=== PATIENT | female | born 1950 | race Caucasian/White ===

== ENCOUNTER 2022-01-19 19:25 | Emergency (ER) | payer MEDICARE ==
[2022-01-19] MEDS ORDERED: Bacitracin Oint 1 GM U/D Packet TOP ONE (19:31)
[2022-01-19] MEDS ORDERED: Lidocaine 1% 5 ML VIAL INJECT ONE (19:31)
== END 2022-01-19 20:57 | disposition home or self-care (01) ==
LOC: JP.ED 19:25
DX: S61.216A Laceration without foreign body of right little finger without damage to nail, initial encounter (principal); Z79.899 Other long term (current) drug therapy; W26.8XXA Contact with other sharp object(s), not elsewhere classified, initial encounter
CPT/HCPCS: 12001; 99282